=== PATIENT | male | born 1960 | race African-American/Black ===

== ENCOUNTER 2017-12-03 14:46 | Emergency (ER) | payer SELFPAY ==
[~2017-12-03] VITALS: Ht 170.2 cm; Wt 69.0 kg
[2017-12-03 14:51] VITALS: BP 128/82; PULSE 96; RESP 16; TEMP 97.6; O2SAT 96
== END 2017-12-03 14:57 | disposition left against medical advice (07) ==
LOC: NED 14:46
DX: Z00.00 Encounter for general adult medical examination without abnormal findings (principal)
CPT/HCPCS: 99281